=== PATIENT | female | born 1990 | race Caucasian/White ===

== ENCOUNTER 2019-03-22 14:37 | Emergency (ER) | payer MEDICAID ==
--- NOTE | 2019-03-22 16:48 | EDM.PDOC ---
ED HPI GENERAL MEDICAL PROBLEM - General Chief Complaint: General Stated Complaint: FEVER, SINUS INFECTION X10 DAYS Time Seen by Provider: 03/22/19 14:55 Source of Information: Reports: Patient History Limitations: Reports: No Limitations - History of Present Illness INITIAL COMMENTS - FREE TEXT/NARRATIVE: pt arrived with a history of nasal congestion. Timwe has been using the Neti Pot and alot of very thick mucous --colored is coming out. She has pain on the left side of her face. She has had a low grade temp. Onset: Gradual, Other ( last 3-4 days. ) Duration: Hour(s): Location: Reports: Face Associated Symptoms: Reports: Cough, Other (pt is having alot of nasal discharge. ) Face/Facial Pain Score (Numeric/FACES): 4 - Related Data Allergies Allergy/AdvReac Type Severity Reaction Status Date / Time codeine Allergy Abdominal Verified 03/22/19 15:05 Pain oxycodone Allergy Hives Verified 03/22/19 15:05 Home Meds: Home Meds NK [No Known Home Meds] 03/22/19 [History] Past Medical History - Past Surgical History GI Surgical History: Reports: Appendectomy Social & Family History - Tobacco Use Smoking Status *Q: Current Some Day Smoker Years of Tobacco use: 1 Packs/Tins Daily: 0 - Caffeine Use Caffeine Use: Reports: Coffee, Tea - Recreational Drug Use Recreational Drug Use: No ED ROS GENERAL - Review of Systems Review Of Systems: See Below Constitutional: Reports: Chills, Malaise, Other ( facial pain and a headache) HEENT: Reports: Sinus Problem, Other (pt has facial pain) Respiratory: Reports: No Symptoms Cardiovascular: Reports: No Symptoms Endocrine: Reports: No Symptoms GI/Abdominal: Reports: No Symptoms : Reports: No Symptoms Musculoskeletal: Reports: No Symptoms Skin: Reports: No Symptoms Neurological: Reports: No Symptoms ED EXAM, GENERAL - Physical Exam Exam: See Below Free Text/Narrative:: pt has facial pain and is tender over the maxillary sinuses mainly on the left. Exam Limited By: No Limitations General Appearance: Alert, Anxious, Mild Distress Ears: Normal TMs Nose: Normal Inspection Throat/Mouth: Normal Inspection, Other (pt is very tender over the left maxillary sinus. ) Head: Atraumatic Neck: Normal Inspection Respiratory/Chest: No Respiratory Distress Cardiovascular: Regular Rate, Rhythm Course - Vital Signs Last Recorded V/S: Last Vital Signs Temp 36.7 C 03/22/19 15:11 Pulse 94 03/22/19 15:11 Resp 16 03/22/19 15:11 BP 137/88 03/22/19 15:11 Pulse Ox 97 03/22/19 15:11 Departure - Departure Time of Disposition: 16:46 Disposition: Home, Self-Care 01 Condition: Fair Clinical Impression: Maxillary sinusitis - Discharge Information Instructions: Sinusitis, Adult, [id number] Referrals: Delisa Hirsch CNM [Primary Care Provider] - Forms: ED Department Discharge Care Plan Goals: cool mist humidifier, continue to use the Neti pot, augmentin 875 bid for the next 10 days, push fluids, Use alot of yogurt and probiotic while on the augmentin. Sepsis Event Note - Evaluation Sepsis Screening Result: Possible Sepsis Risk - Focused Exam Date Exam was Performed: 03/25/19 Time Exam was Performed: 07:49
== END 2019-03-22 16:53 | disposition home or self-care (01) ==
LOC: JP.ED 14:37
DX: J32.0 Chronic maxillary sinusitis (principal); F17.210 Nicotine dependence, cigarettes, uncomplicated; Z88.5 Allergy status to narcotic agent; Z88.6 Allergy status to analgesic agent
CPT/HCPCS: 99283